=== PATIENT | female | born 1935 | race Caucasian/White ===

== ENCOUNTER 2020-02-08 10:10 | Inpatient (IN) ==
[2020-02-08] MEDS ORDERED: 0.9 % SODIUM CHLORIDE 1,000 ML IV ONE (10:21)
--- NOTE | 2020-02-08 10:30 | Emergency Department Note ---
Fall HPI - General Chief Complaint: Fall Stated Complaint: left hip pain Time Seen by Provider: 02/08/20 10:12 Source: patient Mode of arrival: EMS - History of Present Illness HPI Narrative: 84-year-old female patient presents emergency department via ambulance with chief complaint of left hip pain and immobility. Patient tells me she is walking at her home earlier this morning when she inadvertently reached down to pick something up off the floor and slipped backwards. During this time she landed on her hardwood floor causing exquisite pain in her left hip. She was unable to get up or ambulate afterward. EMS was contacted and she was transported to the hospital for evaluation. Upon arrival patient complains of exquisite pain throughout the entire left hip. She rates it 04/11. She denies any radiculopathy or numbness and tingling extending into her foot. She denies previous injury to her hip. She does mention slipped hitting her head but denies loss of consciousness. She denies proceeding dizziness, shortness of breath, or chest pain prior to falling. She denies any recent illness, fever, sweats, chills. She denies abdominal pain, nausea, vomiting, or diarrhea. Review of her active problems shows the following: Chronic back pain, multiple CVA, uterine cancer, breast cancer, polio, anxiety, vitamin D deficiency, diverticulosis, bipolar, COPD, hypertension, PTSD, Mnire's disease, chronic kidney disease stage II, type 2 diabetes, hypothyroidism. - Related Data Home Medications Medication Instructions Recorded Confirmed Meclizine [Antivert] 25 mg PO BID 03/15/16 12/13/19 Accu-Chek 1 each FS AC 03/17/16 12/13/19 albuterol sulfate 90 mcg/actuation 2 puff INHALATION QID PRN 05/24/19 12/13/19 aerosol inhaler benzonatate 100 mg capsule 200 mg PO TID PRN 05/24/19 12/13/19 mirtazapine 30 mg tablet 30 mg PO QHS tab 05/24/19 12/13/19 ondansetron HCl 4 mg tablet 4 mg PO Q6H PRN tab 05/24/19 12/13/19 prazosin 1 mg capsule 4 mg PO QDAY cap 05/24/19 12/13/19 tiotropium 2.5 mcg-olodaterol 2.5 2 puff INHALATION QDAY 05/24/19 12/13/19 mcg/actuation mist for inhalation tiotropium bromide 18 mcg capsule 1 cap INHALATION QDAY 05/24/19 12/13/19 with inhalation device insulin glargine 100 unit/mL (3 See Rx Instructions SUB-Q QAM ml 08/21/19 12/13/19 mL) subcutaneous pen Previous Rx's Medication Instructions Recorded Ipratropium/Albuterol [Duoneb] 3 ml NEB Q6HP PRN #30 ampul.neb 08/31/18 furosemide 20 mg tablet See Rx Instructions .ROUTE 07/24/19 .COMPLEX #20 tab cilostazol 100 mg tablet 100 mg PO QDAY #30 tab 08/22/19 pen needle, diabetic 31 gauge x See Rx Instructions .ROUTE 08/22/1912/16" .MEDSUPPLY #100 each blood-glucose meter See Rx Instructions .ROUTE 09/13/19 .MEDSUPPLY #1 each blood sugar diagnostic See Rx Instructions .ROUTE 09/17/19 .MEDSUPPLY #100 each baclofen 5 mg tablet 5 mg PO BID #15 tab 10/12/19 gabapentin 300 mg capsule 300 mg PO TID #150 cap 10/16/19 hydrocodone 7.5 mg-acetaminophen 1 tab PO Q12H #60 tab 10/23/19 325 mg tablet memantine 10 mg tablet 10 mg PO QAM #30 tab 11/13/19 liothyronine 5 mcg tablet See Rx Instructions .ROUTE 12/10/19 .COMPLEX #30 tablet trazodone 100 mg tablet See Rx Instructions .ROUTE 12/10/19 .COMPLEX #30 tablet clopidogrel 75 mg tablet 75 mg PO QDAY #30 tab 12/11/19 levothyroxine 50 mcg tablet 50 mcg PO QAM #30 tab 12/11/19 montelukast 10 mg tablet 10 mg PO QDAY #30 tab 12/11/19 pantoprazole 40 mg tablet,delayed 40 mg PO QDAY #90 tab 01/09/20 release atorvastatin 20 mg tablet 20 mg PO QDAY #30 tab 01/28/20 duloxetine 60 mg capsule,delayed 60 mg PO QDAY #30 cap 01/28/20 release metformin 500 mg tablet 500 mg PO BID #60 tab 01/28/20 donepezil 5 mg tablet 5 mg PO QDAY #90 tab 02/05/20 semaglutide See Rx Instructions .ROUTE 02/08/20 .COMPLEX #2 unknown measurement unit code: ml Allergies Allergy/AdvReac Type Severity Reaction Status Date / Time doxycycline Allergy Severe unknown Verified 12/13/19 10:10 povidone-iodine Allergy Severe unknown Verified 12/13/19 10:10 [From Betadine] soap [From Betadine] Allergy Severe unknown Verified 12/13/19 10:10 Tetanus Vaccines and Toxoid Allergy Severe unknown Verified 12/13/19 10:10 Penicillins AdvReac Severe Anaphylaxis Verified 12/13/19 10:10 cephalexin [From Keflex] AdvReac Intermediate Rash Verified 12/13/19 10:10 metoclopramide AdvReac Intermediate Confusion Verified 12/13/19 10:10 pseudoephedrine AdvReac Intermediate Confusion Verified 12/13/19 10:10 Sulfa (Sulfonamide AdvReac Intermediate Rash Verified 12/13/19 10:10 Antibiotics) Review of Systems All systems ED: reviewed and negative except as stated. Fall PMH - Past Medical History Medical history: Reports: arthritis, asthma, cancer, renal disease, TIA - Social History smoking status: Never smoker Physical Exam Limitations: no limitations General appearance: alert, anxious, grimacing, in distress, other (Well- developed, well-nourished, 84-year-old female patient laying supine on the emergency room gurney in obvious discomfort. She is grimacing with even slight touch as of her left lower extremity.) Head: atraumatic, normocephalic, normal inspection Head physical: Absent: raccoon eyes, Gu's sign Eye: Present: normal appearance, PERRL, EOMI, miosis (constriction). Absent: scleral icterus, conjunctival injection ENT: Present: normal oropharynx, mucous membranes moist Neck: Present: normal inspection, full ROM, trachea midline. Absent: tenderness, lymphadenopathy Chest: Present: symmetric chest wall rise Respiratory: Present: normal lung sounds bilaterally. Absent: respiratory distress, rales/crackles, wheezes, stridor, accessory muscle use, prolonged expiratory phase Cardiovascular: Present: regular rate, normal rhythm. Absent: systolic murmur, diastolic murmur Abdominal: Present: soft. Absent: distention, tenderness, guarding, rebound, rigidity, organomegaly, mass Extremities: Present: tenderness (Exquisite tenderness palpation throughout the entire left hip joint.), normal capillary refill, other (Pedal pulses present and bounding bilateral. Sensation grossly intact light touch throughout all areas of the lower extremities.). Absent: normal inspection (Left leg is shortened and angulated outward.), full ROM, pedal edema Neurological: Present: alert, oriented X3, motor sensory deficit. Absent: normal gait Psychiatric: Present: normal affect, anxious Skin: Present: warm, dry, normal color Course Course Narrative: Patient was brought into the emergency department and a history and physical exam was performed. Routine screening labs were ordered and reviewed. Radiographs of the left hip were ordered and reviewed. Patient was given Dilaudid 0.5 mg IVP to help with the pain. Review of her laboratory studies show the following: CBC within normal limits. Chemistry panel total CO2 21, glucose 218, all others normal limits. Chest x-ray read as negative study. X- ray of the left hip read by the radiologist as acute fracture left femoral neck. She required additional pain medications while in radiology was given a second Dilaudid 0.5 mg IVP. After reviewing all the data I reached out to the on-call orthopedic surgeon (Dr. Moss) and discussed the case with him. At this time Dr. Moss recommend the patient be admitted to the hospital under the medical service. He would then consult and and possibly repair of the fracture either today or tomorrow. With this in mind, I reached out to the hospitalist (Dr. Figueroa) I discussed the case with him. At this time Dr. Figueroa has consented to admit the patient here to the hospital. Next, I explained this to the patient to verbalized understanding. She is remained stable throughout her entire time in the emergency department. As mentioned she is going to be admitted under the medical service with orthopedic surgery in consultation. All further treatment decisions, modalities, and ultimate patient disposition will be carried out by Dr. Figueroa with Dr. Moss in consultation. Vital Signs Temperature 97.4 F 02/08/20 10:12 Pulse Rate 85 02/08/20 10:12 Respiratory Rate 22 02/08/20 10:12 Blood Pressure 178/71 02/08/20 10:12 Pulse Oximetry (%) 100 02/08/20 10:12 Temperature 97.4 F 02/08/20 10:12 Pulse Rate 97 H 02/08/20 11:21 Respiratory Rate 22 02/08/20 10:12 Blood Pressure 145/59 02/08/20 11:21 Pulse Oximetry (%) 97 02/08/20 11:21 Fall - Lab Data Lab results reviewed: Yes I reviewed the patient's lab results. Result diagrams: 02/08/20 10:39 Lab Results 02/08/20 02/08/20 Range/Units 10:39 10:39 WBC 6.4 (4.50-11.00) K/mcL RBC 4.59 (3.59-5.38) M/mcL Hgb 14.0 (11.2-15.7) g/dL Hct 41.2 (34.1-44.9) % POC Hct 40.0 (36.0-48.0) % MCV 89.8 (80.0-100.0) fL MCH 30.5 (26.0-34.0) pg MCHC 34.0 (31.0-36.0) g/dL RDW 12.4 (11.5-14.5) % Plt Count 167 (140-440) K/mcL MPV 11.2 H (7.4-10.4) fL Gran % 73.9 (38.0-78.0) % Lymph % (Auto) 18.4 (15.5-49.0) % [place] % (Auto) 5.3 (1.0-12.0) % Eos % (Auto) 1.6 (0.0-7.0) % Baso % (Auto) 0.8 (0.0-2.0) % Gran # 4.74 (1.80-8.00) K/mcL Lymph # (Auto) 1.18 L (1.50-4.80) K/mcL [place] # (Auto) 0.34 (0.10-0.90) K/mcL Eos # (Auto) 0.10 (0.00-0.70) K/mcL Baso # (Auto) 0.05 (0.00-0.30) K/mcL POC Sodium 140 (133-145) mmol/L POC Potassium 4.2 (3.3-5.1) mmol/L POC Chloride 106 (96-108) mmol/L POC Total CO2 21 L (22-30) mmol/L POC BUN 22 (8-23) mg/dl POC Creatinine 0.7 (0.6-1.1) mg/dl POC Glucose 218 H (70-105) mg/dL POC WB Ioniz Calcium 1.20 (1.16-1.32) mmol/L - Radiology Data Radiology results reviewed: Yes I reviewed the patient's radiology results. Ordering Physician: Niles Huffman PA-C Date of Service: 02/08/20 Procedure(s): XR hip LT comp 2VW Accession Number(s): [id number] HISTORY: Fell with left hip injury FINDINGS: There is an acute transverse fracture through the left femoral neck. There is varus angulation and mild impaction at the fracture site. The head remains normally aligned with the acetabulum and there is no arthritis in the hip joint. There are contour deformities in the right superior and inferior pubic rami and the left superior pubic ramus. Although these are not present on 07/06/18, they appear to be old healed fractures. Patient has had prior laminectomy and fusion at L5-S1. The bones are osteoporotic. Atherosclerotic plaques are present in the femoral arteries. IMPRESSION: Acute fracture in the left femoral neck Interpreted and Authenticated by: Jez Maldonado 02/08/20 Ordering Physician: Niles Huffman PA-C Date of Service: 02/08/20 Procedure(s): XR chest 1V Accession Number(s): [id number] HISTORY: Fell with chest injury FINDINGS: Left diaphragm is mild to moderately elevated. This has increased since prior study done on 05/15/19. The lungs are clear and well expanded. There is no pleural effusion or pneumothorax. The heart size, mediastinum and yenifer are normal. No fracture is identified. IMPRESSION: No acute abnormality Interpreted and Authenticated by: Jez Maldonado 02/08/20 Disposition Pt seen by HOSPITALIST MEDICAL DIRECTOR/PA only: Yes Clinical Impression: Fracture of femoral neck, left, closed Qualifiers: Encounter type: initial encounter Qualified Code(s): S72.002A - Fracture of unspecified part of neck of left femur, initial encounter for closed fracture Disposition: Xfer As Inpt ([facility]) Condition: Fair Referrals: Vania Chatterjee [Primary Care Provider] -
[2020-02-08] MEDS: HYDROmorphone 0.5 MG/0.5 ML SYRINGE IV PRN ×3 (10:32→13:57)
[2020-02-08] MEDS ORDERED: ONDANSETRON 4 MG/2 ML VIAL IV ONE ×2 (10:44→15:20)
[2020-02-08] MEDS ORDERED: ONDANSETRON 4 MG/2 ML VIAL ONE (10:47)
[2020-02-08 10:51] LABS: POC Blood Urea Nitrogen 22 mg/dl (8-23); POC CO2 21 mmol/L (22-30); POC Chloride 106 mmol/L (96-108); POC Creatinine 0.7 mg/dl (0.6-1.1); POC Glucose, Random 218 mg/dL (70-105); POC Potassium 4.2 mmol/L (3.3-5.1); POC Sodium 140 mmol/L (133-145)
--- NOTE | 2020-02-08 11:05 | XRay Report ---
HISTORY: Fell with left hip injury FINDINGS: There is an acute transverse fracture through the left femoral neck. There is varus angulation and mild impaction at the fracture site. The head remains normally aligned with the acetabulum and there is no arthritis in the hip joint. There are contour deformities in the right superior and inferior pubic rami and the left superior pubic ramus. Although these are not present on 07/06/18, they appear to be old healed fractures. Patient has had prior laminectomy and fusion at L5-S1. The bones are osteoporotic. Atherosclerotic plaques are present in the femoral arteries. IMPRESSION: Acute fracture in the left femoral neck Interpreted and Authenticated by: Jez Maldonado 02/08/20
--- NOTE | 2020-02-08 11:10 | XRay Report ---
HISTORY: Fell with chest injury FINDINGS: Left diaphragm is mild to moderately elevated. This has increased since prior study done on 05/15/19. The lungs are clear and well expanded. There is no pleural effusion or pneumothorax. The heart size, mediastinum and yenifer are normal. No fracture is identified. IMPRESSION: No acute abnormality Interpreted and Authenticated by: Jez Maldonado 02/08/20
[2020-02-08 11:26] LABS: Basophils # (Auto) 0.05 K/mcL (0.00-0.30); Basophils % (Auto) 0.8 % (0.0-2.0); Eosinophils % (Auto) 1.6 % (0.0-7.0); Granulocytes % (Auto) 73.9 % (38.0-78.0); Hematocrit 41.2 % (34.1-44.9); Lymphocytes # (Auto) 1.18 K/mcL (1.50-4.80); Lymphocytes % (Auto) 18.4 % (15.5-49.0); Mean Cell Volume 89.8 fL (80.0-100.0); Mean Platelet Volume 11.2 fL (7.4-10.4); Monocytes # (Auto) 0.34 K/mcL (0.10-0.90); Monocytes % (Auto) 5.3 % (1.0-12.0); Platelet Count 167 K/mcL (140-440); RBC 4.59 M/mcL (3.59-5.38); Red Cell Distribution Width 12.4 % (11.5-14.5); WBC 6.4 K/mcL (4.50-11.00)
[2020-02-08 12:47] LABS: POC Pro Time 12.2 sec (11.9-14.5)
[2020-02-08 13:14] LABS: Appearance,Urine CLEAR; Bacteria,Urine 0 /hpf (0); Bilirubin,Urine NEG (NEG); Color,Urine YELLOW; Culture Indicated,Urine NO; Glucose,Urine (UA) 150 mg/dL (NEG); Ketones,Urine 5/TR mg/dL (NEG); Leukocyte Esterase,Urine 250 /uL (NEG); Mucus,Urine FEW /hpf (0); Nitrate,Urine NEG (NEG); Protein,Urine NEG (NEG); Specific Gravity,Urine 1.023 (1.000-1.035); Urine Blood NEG mg/dL (<0.03); Urine Hyaline Cast 2 /lpf (0-2); Urine RBC 1 /hpf (0-1); Urine Squamous Epithelial Cell 1 /hpf (0-4); Urine Transitional Epi Cells < 1 /hpf (0-2); Urine WBC 7 /hpf (0-4); Urobilinogen,Urine NEG (NEG)
[2020-02-08] MEDS ORDERED: HYDROmorphone 0.5 MG/0.5 ML SYRINGE IV PRN ×2 (13:54→14:54)
[2020-02-08] MEDS ORDERED: SCOPOLAMINE 1 PATCH PATCH TOPICAL PRN ×2 (14:14→14:54)
[2020-02-08] MEDS ORDERED: IPRATROPIUM/ALBUTEROL 3 ML AMPUL.NEB NEB PRN ×3 (14:14→16:05)
[2020-02-08] MEDS ORDERED: DEXTROSE 50% 50 ML VIAL IV PRN ×2 (14:35→14:54)
[2020-02-08] MEDS ORDERED: DEXTROSE 31 GM ORAL.SUSP PO PRN ×2 (14:35→14:54)
[2020-02-08] MEDS ORDERED: PROCHLORPERAZINE 10 MG/2 ML VIAL IV PRN ×2 (14:35→14:54)
[2020-02-08] MEDS ORDERED: traMADol 50 MG TABLET PO PRN ×2 (14:43→14:54)
[2020-02-08] MEDS ORDERED: 0.9 % SODIUM CHLORIDE 1,000 ML IV SCH (14:45)
--- NOTE | 2020-02-08 14:59 | Internal Med History&Physical ---
Medical - H&P: [facility] Patient information: Note initiated : 02/08/20 at 2:49 pm Service Date, if different from initiated Date: [] Patient: Monika Mendez a 84 y/o F admitted on 02/08/20 for left hip pain. Chief Complaint: [fell and Left hip] History of present illness: Ms. Mendez is a 84 year old F with a past medical history of, COPD, high blood pressure, anemia, diabetes type 2, hypothyroidism, diabetes and depression who presents to the ER due to a fall and left hip pain. As per patient, she had a mechanical fall this morning at home. Immediately after the fall, she started to have left hip pain. Patient denies loss of consciousness and any injury to her head. In the ER, xray showed left hip fracture. Orth Dr. Moss was consulted, who suggested to admit pt and will do surgical intervention for her fracture. When I saw this patient, other than the symptoms mentioned above, she denied headache, dizziness, chest pain, shortness of breath, nausea, vomiting, abdominal pain, dysuria, change in vision, tingling or numbness of both legs. Review of systems: Positive for left hip pain. All other systems were reviewed and are negative. Medical - H&P: PMH Family history: reviewed and not pertinent (Both parents had diabetes) Have you smoked in the last 12 months: No Drug use: none Alcohol use: none Medical - H&P: Meds Home Medications Medication Instructions Recorded Confirmed Type Meclizine [Antivert] 25 mg PO BID 03/15/16 12/13/19 History Accu-Chek 1 each FS AC 03/17/16 12/13/19 History Ipratropium/Albuterol [Duoneb] 3 ml NEB Q6HP PRN #30 ampul.neb 08/31/18 12/13/19 Rx albuterol sulfate 90 mcg/actuation 2 puff INHALATION QID PRN 05/24/19 12/13/19 History aerosol inhaler benzonatate 100 mg capsule 200 mg PO TID PRN 05/24/19 12/13/19 History mirtazapine 30 mg tablet 30 mg PO QHS tab 05/24/19 12/13/19 History ondansetron HCl 4 mg tablet 4 mg PO Q6H PRN tab 05/24/19 12/13/19 History prazosin 1 mg capsule 4 mg PO QDAY cap 05/24/19 12/13/19 History tiotropium 2.5 mcg-olodaterol 2.5 2 puff INHALATION QDAY 05/24/19 12/13/19 History mcg/actuation mist for inhalation tiotropium bromide 18 mcg capsule 1 cap INHALATION QDAY 05/24/19 12/13/19 History with inhalation device furosemide 20 mg tablet See Rx Instructions .ROUTE 07/24/19 12/13/19 Rx .COMPLEX #20 tab insulin glargine 100 unit/mL (3 See Rx Instructions SUB-Q QAM ml 08/21/19 12/13/19 History mL) subcutaneous pen cilostazol 100 mg tablet 100 mg PO QDAY #30 tab 08/22/19 12/13/19 Rx pen needle, diabetic 31 gauge x See Rx Instructions .ROUTE 08/22/19 12/13/19 Rx 3" .MEDSUPPLY #100 each blood-glucose meter See Rx Instructions .ROUTE 09/13/19 12/13/19 Rx .MEDSUPPLY #1 each blood sugar diagnostic See Rx Instructions .ROUTE 09/17/19 12/13/19 Rx .MEDSUPPLY #100 each baclofen 5 mg tablet 5 mg PO BID #15 tab 10/12/19 12/13/19 Rx gabapentin 300 mg capsule 300 mg PO TID #150 cap 10/16/19 12/13/19 Rx hydrocodone 7.5 mg-acetaminophen 1 tab PO Q12H #60 tab 10/23/19 12/13/19 Rx 325 mg tablet memantine 10 mg tablet 10 mg PO QAM #30 tab 11/13/19 12/13/19 Rx liothyronine 5 mcg tablet See Rx Instructions .ROUTE 12/10/19 12/13/19 Rx .COMPLEX #30 tablet trazodone 100 mg tablet See Rx Instructions .ROUTE 12/10/19 12/13/19 Rx .COMPLEX #30 tablet clopidogrel 75 mg tablet 75 mg PO QDAY #30 tab 12/11/19 12/13/19 Rx levothyroxine 50 mcg tablet 50 mcg PO QAM #30 tab 12/11/19 12/13/19 Rx montelukast 10 mg tablet 10 mg PO QDAY #30 tab 12/11/19 12/13/19 Rx pantoprazole 40 mg tablet,delayed 40 mg PO QDAY #90 tab 01/09/20 Rx release atorvastatin 20 mg tablet 20 mg PO QDAY #30 tab 01/28/20 Rx duloxetine 60 mg capsule,delayed 60 mg PO QDAY #30 cap 01/28/20 Rx release metformin 500 mg tablet 500 mg PO BID #60 tab 01/28/20 Rx donepezil 5 mg tablet 5 mg PO QDAY #90 tab 02/05/20 Rx semaglutide See Rx Instructions .ROUTE 02/08/20 Rx .COMPLEX #2 unknown measurement unit code: ml Allergies Allergy/AdvReac Type Severity Reaction Status Date / Time doxycycline Allergy Severe unknown Verified 12/13/19 10:10 povidone-iodine Allergy Severe unknown Verified 12/13/19 10:10 [From Betadine] soap [From Betadine] Allergy Severe unknown Verified 12/13/19 10:10 Tetanus Vaccines and Toxoid Allergy Severe unknown Verified 12/13/19 10:10 Penicillins AdvReac Severe Anaphylaxis Verified 12/13/19 10:10 cephalexin [From Keflex] AdvReac Intermediate Rash Verified 12/13/19 10:10 metoclopramide AdvReac Intermediate Confusion Verified 12/13/19 10:10 pseudoephedrine AdvReac Intermediate Confusion Verified 12/13/19 10:10 Sulfa (Sulfonamide AdvReac Intermediate Rash Verified 12/13/19 10:10 Antibiotics) Medical - H&P: Exam - Constitutional Vitals: Temp Pulse Resp BP Pulse Ox 97.5 F 109 H 22 138/70 98 02/08/20 14:00 02/08/20 14:00 02/08/20 14:00 02/08/20 14:00 02/08/20 14:00 - Other Additional findings: General - No acute distress Eyes - PERRLA, EOM intact ENT no rhinorrhea, no noticeable or palpable swelling, no redness or rash around throat or on face Neck supple, no JVD, no thyromegaly Respiratory: Lungs -clear, no wheezing or crackles. Cardiovascular - RRR no m/r/g, GI - Normal bowel sounds, no distended, soft. Extremeties - left hip tenderness, No edema, cyanosis or clubbing Hemo/lymphatic/immune no lymphadenopathy Neurological Alert and oriented x 3, expressive aphasia, no focal neurological deficits. Psychiatry flat affect Medical - H&P: Reslt - Labs CBC & Chem 7: 02/08/20 10:39 Labs: Short CBC 02/08/20 Range/Units 10:39 WBC 6.4 (4.50-11.00) K/mcL Hgb 14.0 (11.2-15.7) g/dL Hct 41.2 (34.1-44.9) % Plt Count 167 (140-440) K/mcL Urine 02/08/20 Range/Units 12:16 Urine Color Yellow Urine Appearance Clear Urine pH 5.0 (5.0-9.0) Ur Specific [place] 1.023 (1.000-1.035) Urine Protein Neg (NEG) mg/dL Urine Glucose (UA) 150 A (NEG) mg/dL Medical - H&P: A/P - Narrative A/P Narrative: Assessment: 1. Acute fracture in the left femoral neck 2. S/p stroke 3. COPD 4. HTN 5. Anemia of chronic disease 6. DM type 2 7. Hx of orthostatic hypotension 8. Hypothyroidism 9. Anxiety and depression 10. Meachanical fall at home, Plan: 1. Xray showed Acute fracture in the left femoral neck Dr. Moss was consulted in the ER who would perform a procedure for her. Revised Cardiac Risk Index for Pre-Operative Risk - 2 points (at least). 10.1% 30-day risk of , [place], or cardiac arrest. NPO IVF pain management 2. 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 Home medications include plavix and lipitor. Plavix is on hold due to procedure. Continue lipitor. 3. COPD stable. Continue montelukast and inhalers 4. Home medications do not include blood pressure medication. Blood pressure is controlled Monitor blood pressure 5. Metformin is on hold Lantus is on hold due to NPO Insulin sliding scales 6. Continue home medications for anxiety and depression 7. PT/OT 8. DVT prophylaxis: No pharmacological DVT prophylaxis at this moment due to procedure 9. Code status: DNR/DNI Medical - H&P: Qual - Stroke Symptom Onset Unknown: No - VTE Deep Vein Thrombosis/Pulmonary Embolism Present on Admission: No
[2020-02-08] MEDS ORDERED: VANCOMYCIN 1,000 MG in 0.9 % SODIUM CHLORIDE 250 ML IV SCH (15:00)
[2020-02-08] MEDS ORDERED: VANCOMYCIN PER PHARMACY IV ONE (15:02)
--- NOTE | 2020-02-08 15:17 | Event Note ---
Advanced Care Planning Documents: Parties in Attendance: Patient Decisional Capacity: Yes POLST form completed: not I explained the process regarding CPR, defibrillation, shock, and intubation to the patient. Pt declined cpr and intubation.
[2020-02-08] MEDS ORDERED: LIDOCAINE HCL/PF 100 MG/5 ML SYRINGE IV ONE (15:20)
[2020-02-08] MEDS ORDERED: DEXAMETHASONE 10 MG/ML VIAL IV ONE (15:20)
[2020-02-08] MEDS ORDERED: TRANEXAMIC ACID 1,000 MG/10 ML VIAL IV ONE (15:20)
[2020-02-08] MEDS ORDERED: fentaNYL 100 MCG/2 ML VIAL IV ONE (15:20)
[2020-02-08] MEDS ORDERED: KETAMINE 100 MG/ML ML IV ONE (15:20)
[2020-02-08] MEDS ORDERED: PROPOFOL 200 MG/20 ML VIAL IV ONE (15:20)
[2020-02-08 15:22] LABS: Phosphorous 2.8 mg/dL (2.7-4.5)
[2020-02-08 15:24] LABS: proBNP 84.1 pg/ml (0-450)
[2020-02-08] MEDS ORDERED: diphenhydrAMINE 50 MG/ML VIAL IV PRN (16:05)
[2020-02-08] MEDS ORDERED: METHOCARBAMOL 1,000 MG/10 ML VIAL IV PRN (16:05)
[2020-02-08] MEDS ORDERED: NALOXONE HCL 0.4 MG/ML VIAL IV PRN (16:05)
[2020-02-08] MEDS ORDERED: PROMETHAZINE 25 MG/ML VIAL IV PRN (16:05)
[2020-02-08] MEDS ORDERED: ONDANSETRON 4 MG/2 ML VIAL IV PRN (16:05)
[2020-02-08] MEDS ORDERED: ACETAMINOPHEN 1,000 MG/100 ML BOTTLE IV ONE (16:05)
[2020-02-08] MEDS ORDERED: BENZOCAINE/MENTHOL 1 LOZENGE PO PRN ×2 (16:05→16:49)
[2020-02-08] MEDS ORDERED: LACTATED RINGERS 250 ML IV PRN (16:05)
[2020-02-08] MEDS ORDERED: LACTATED RINGERS 1,000 ML IV SCH (16:15)
[2020-02-08] MEDS ORDERED: POLYETHYLENE GLYCOL 3350 17 GM PACKET PO PRN (16:49)
[2020-02-08] MEDS ORDERED: BISACODYL 10 MG SUPP.RECT PR PRN (16:49)
[2020-02-08] MEDS ORDERED: MAGNESIUM HYDROXIDE 30 ML ORAL.SUSP PO PRN (16:49)
[2020-02-08] MEDS ORDERED: FLEETS ADULT ENEMA PR PRN (16:49)
[2020-02-08] MEDS ORDERED: ceFAZolin 2 GM in DEXTROSE 5% IN WATER 50 ML IV SCH (17:00)
[2020-02-08] MEDS ORDERED: INSULIN LISPRO 1 UNIT/0.01 ML UNIT SQ SCH (17:00)
[2020-02-08] MEDS: MEPERIDINE 25 MG/ML SYRINGE IV PRN ×2 (17:17→17:28)
[2020-02-08] MEDS: fentaNYL 100 MCG/2 ML VIAL IV PRN ×4 (17:29→17:47)
[2020-02-08] MEDS: INSULIN LISPRO 1 UNIT/0.01 ML UNIT SQ SCH ×2 (18:10→22:11)
[2020-02-08] MEDS: 0.9 % SODIUM CHLORIDE 1,000 ML IV SCH (18:10)
--- NOTE | 2020-02-08 20:00 | Brief Operative Note ---
Date of procedure: 02/08/20 Pre-op diagnosis: Left femoral neck fracture Post-op diagnosis: same (plust greater trochanter fracture) Procedure: Open treatment of Left femoral neck fracture with prosthetic hemiarthroplasty Grafts/Implants: Yes (Depuy 7 cemented summit stem, +10 neck, 46 unipolar head) Anesthesia: GETA Findings: severe osteoporosis Complications: none Surgeon: Milton Moss Surgical Aide: Deniz David Estimated blood loss (cc): 200 Specimens Removed/Pathology: none sent Condition: stable Disposition: PACU
--- NOTE | 2020-02-08 20:19 | Consultation ---
DATE OF CONSULTATION: 02/08/2020 CHIEF COMPLAINT: Left hip pain status post fall. HISTORY: This is an 84-year-old female who lives independently who stated she was reaching down to pick something off the floor and slipped backwards landing on her left hip. She had exquisite pain and inability to bear weight. EMS was called and she was taken to the ER. X-rays taken showed a femoral neck fracture. She denies any injury to anywhere else and denies loss of consciousness. Pain is made worse with movement, 7/10 in severity, better with immobility. PAST MEDICAL HISTORY: Quite extensive, including diabetes type 2, chronic renal insufficiency, history of multiple strokes, breast cancer, bipolar with anxiety, COPD, hypertension, PTSD, diverticulosis, chronic back pain, hypothyroidism, Meniere's disease. PAST SURGICAL HISTORY: Also extensive, apparently has had right ankle fracture surgery as well as spine fracture surgery. MEDICATIONS: List is extensive, includes, 1. Meclizine. 2. Albuterol inhaler. 3. Benzonatate. 4. Mirtazapine. 5. Ondansetron. 6. Prazosin. 7. Tiotropium inhaler. 8. Insulin. 9. Baclofen. 10. Gabapentin. 11. Hydrocodone. 12. Memantine. 13. Liothyronine. 14. Trazodone. 15. Clopidogrel. 16. Levothyroxine. 17. Montelukast. 18. Pantoprazole. 19. Atorvastatin. 20. Duloxetine. 21. Metformin. 22. Donepezil. 23. Semaglutide. ALLERGIES: DOXYCYCLINE, BETADINE, TETANUS, PENICILLIN, CEPHALEXIN, METOCLOPRAMIDE, PSEUDOEPHEDRINE AND SULFA. SOCIAL HISTORY: No tobacco or alcohol use. She lives independently. FAMILY HISTORY: Positive for arthritis, asthma, cancer, renal disease and TIA. REVIEW OF SYSTEMS: Negative except per the history of present illness. PHYSICAL EXAMINATION: VITAL SIGNS: Temperature is 97.4, pulse 85, respirations 22, blood pressure 178/71, pulse ox 100%. GENERAL: She appears her stated age in no acute distress. She is oriented to person, place. Mood and affect are appropriate. EXTREMITIES: Bilateral upper extremity and right lower extremity is normal to inspection, range of motion, stability and strength. The left lower extremity on inspection shows shortening with external rotation. She has severely limited range of motion secondary to pain. There is no gross instability of the fracture site. Her strength is 3/5 with foot flexion and extension. Sensation to light touch is grossly intact distally. Pedal pulses 2+ in the dorsalis pedis. Skin is intact. HEART: Regular. LUNGS: Clear. IMAGING: Her x-rays reviewed shows a displaced femoral neck fracture. IMPRESSION: Left closed displaced femoral neck fracture in an 84-year-old female who has multiple other medical comorbidities. PLAN: I recommend we proceed with open treatment of the left femoral neck fracture with prosthetic hemiarthroplasty as soon as cleared by hospitalist. I discussed risks of surgery with her, which include but not limited to, bleeding, possibly requiring transfusion -- this being increased risk with her Plavix, injury to nerves, blood vessels, other surrounding structures; anesthetic risks, leg length discrepancy; dislocation; fracture; DVT and pulmonary embolus risks; and the possibility of needing further surgeries. She understands and wished to proceed. BJB:[id number] Job ID: [id number] Doc ID: [id number] Milton Moss MD
[2020-02-08] MEDS ORDERED: WARFARIN 3 MG TABLET PO ONE (21:00)
[2020-02-08] MEDS ORDERED: SENNOSIDES 1 TABLET PO SCH ×2 (21:00)
[2020-02-08] MEDS ORDERED: DOCUSATE SODIUM 100 MG CAPSULE PO SCH ×2 (21:00)
[2020-02-08] MEDS: SENNOSIDES 1 TABLET PO SCH (21:56)
[2020-02-08] MEDS: DOCUSATE SODIUM 100 MG CAPSULE PO SCH (21:56)
[2020-02-08] MEDS ORDERED: 0.9 % SODIUM CHLORIDE 10 ML SYRINGE IV SCH (22:00)
[2020-02-08] MEDS ORDERED: PRAZOSIN 2 MG CAPSULE PO PRN (22:27)
[2020-02-08] MEDS: 0.9 % SODIUM CHLORIDE 10 ML SYRINGE IV SCH (22:35)
[2020-02-09] MEDS: oxyCODONE/APAP 5/325MG TABLET PO PRN ×4 (03:08→19:04)
[2020-02-09] MEDS: 0.9 % SODIUM CHLORIDE 1,000 ML IV SCH ×3 (04:11→22:02)
[2020-02-09] MEDS: 0.9 % SODIUM CHLORIDE 10 ML SYRINGE IV SCH ×3 (04:11→20:50)
[2020-02-09 06:38] LABS: Basophils # (Auto) 0.03 K/mcL (0.00-0.30); Basophils % (Auto) 0.2 % (0.0-2.0); Eosinophils # (Auto) 0.01 K/mcL (0.00-0.70); Eosinophils % (Auto) 0.1 % (0.0-7.0); Granulocytes % (Auto) 87.2 % (38.0-78.0); Hemoglobin 10.9 g/dL (11.2-15.7); Lymphocytes # (Auto) 0.82 K/mcL (1.50-4.80); Lymphocytes % (Auto) 6.6 % (15.5-49.0); Mean Cell Volume 92.2 fL (80.0-100.0); Mean Platelet Volume 10.9 fL (7.4-10.4); Monocytes # (Auto) 0.73 K/mcL (0.10-0.90); Monocytes % (Auto) 5.9 % (1.0-12.0); Platelet Count 158 K/mcL (140-440); RBC 3.58 M/mcL (3.59-5.38); Red Cell Distribution Width 12.1 % (11.5-14.5); WBC 12.4 K/mcL (4.50-11.00)
[2020-02-09 06:55] LABS: ALT/SGPT 7 U/l (0-40); AST/SGOT 18 U/l (0-37); Albumin 3.1 gm/dL (3.2-5.2); Albumin/Globulin Ratio 1.3 (1.0-2.3); Alkaline Phosphatase 69 U/L (39-117); Bilirubin,Total 0.4 mg/dL (0.0-1.0); Blood Urea Nitrogen 15 mg/dl (8-23); Carbon Dioxide 19 mmol/L (22-30); Chloride 103 mmol/L (96-108); Globulin 2.4 gm/dL (2.2-3.7); Glomerular Filtration Rate 80; Glucose 246 mg/dL (70-105)
[2020-02-09 07:05] LABS: Prothrombin Time 13.9 sec (11.9-14.5)
[2020-02-09] MEDS: PANTOPRAZOLE 40 MG TABLET PO SCH (07:08)
[2020-02-09] MEDS ORDERED: PANTOPRAZOLE 40 MG TABLET PO SCH (07:30)
[2020-02-09] MEDS: INSULIN LISPRO 1 UNIT/0.01 ML UNIT SQ SCH ×4 (08:58→21:01)
[2020-02-09] MEDS: DONEPEZIL 10 MG TABLET PO SCH (08:59)
[2020-02-09] MEDS: ATORVASTATIN 20 MG TABLET PO SCH (08:59)
[2020-02-09] MEDS: LEVOTHYROXINE 50 MCG TABLET PO SCH (08:59)
[2020-02-09] MEDS: DOCUSATE SODIUM 100 MG CAPSULE PO SCH ×2 (08:59→20:50)
[2020-02-09] MEDS: GABAPENTIN 300 MG CAPSULE PO SCH ×3 (08:59→20:49)
[2020-02-09] MEDS: INSULIN GLARGINE, HUMAN 1 UNIT/0.01 ML SQ SCH (08:59)
[2020-02-09] MEDS: DULoxetine 30 MG CAPSULE PO SCH (08:59)
[2020-02-09] MEDS ORDERED: CILOSTAZOL 100 MG TABLET PO SCH (09:00)
[2020-02-09] MEDS ORDERED: VANCOMYCIN 1,000 MG in 0.9 % SODIUM CHLORIDE 250 ML IV ONE (09:00)
[2020-02-09] MEDS ORDERED: CLOPIDOGREL 75 MG TABLET PO SCH (09:00)
--- NOTE | 2020-02-09 09:18 | XRay Report ---
HISTORY: Postop repair of left hip fracture FINDINGS: There is a well positioned unipolar left hip prosthesis. The femoral head and neck of been resected. No new fracture has developed. IMPRESSION: Well-positioned left hip prosthesis Interpreted and Authenticated by: Jez Maldonado 02/09/20
--- NOTE | 2020-02-09 10:00 | Internal Med Progress Note ---
Medical - PN: Subj Patient information: Note initiated : 02/09/20 at 9:54 am Service Date, if different from initiated Date: [] Patient: Monika Mendez a 84 y/o F admitted on 02/08/20 for left hip pain. Chief Complaint: [] Interval history: Ms. Mendez is a 84 year old F with a past medical history of, COPD, high blood pressure, anemia, diabetes type 2, hypothyroidism, diabetes and depression who presents to the ER due to a fall and left hip pain. As per patient, she had a mechanical fall this morning at home. Immediately after the fall, she started to have left hip pain. Patient denies loss of consciousness and any injury to her head. In the ER, xray showed left hip fracture. Orth Dr. Moss was consulted, who suggested to admit pt and will do surgical intervention for her fracture. When I saw this patient, other than the symptoms mentioned above, she denied headache, dizziness, chest pain, shortness of breath, nausea, vomiting, abdominal pain, dysuria, change in vision, tingling or numbness of both legs. 02/08 Pt underwent open treatment of Left femoral neck fracture with prosthetic hemiarthroplasty by Dr. Moss on 02/08/20 Feels fine today. But she reports that she has pain from the surgical site. Otherwise she is fine. Vital signs are stable WBC 12.4, hemoglobin 10.9 Hemoglobin A1c 7.0 MAC 1.2, repleted, repeat in morning Review of systems: Positive for left hip pain. All other systems were reviewed and are negative. - Constitutional Vitals: Vital Signs Temp Pulse Resp BP Pulse Ox 97.3 F 88 14 112/59 98 02/09/20 07:12 02/09/20 07:12 02/09/20 07:12 02/09/20 07:12 02/09/20 07:12 Period Temp Pulse Resp BP Sys/Ley Pulse Ox Last 24 Hr 97.3 F-99.1 F 79-113 10-22 96-178/46-131 92-100 Intake and Output 02/08/20 02/09/20 02/09/20 21:59 05:59 13:59 Intake Total 2100 510 991 Output Total 550 1075 Balance 1550 -565 991 Weight 68.719 kg Intake & Output: Intake & Output 02/08/20 02/09/20 02/09/20 21:59 05:59 13:59 Intake Total 2100 510 991 Output Total 550 1075 Balance 1550 -565 991 Weight 68.719 kg Intake: IV 100 991 Sodium Chloride 0.9% 1,000 ml @ 991 75 mls/hr IV .[id number] [facility] Rx#: [id number] Oral 510 IV - Manual Only 1999 Output: Urine Catheter Amount 300 1075 Estimated Blood Loss 250 Other: Urine Appearance Clear Clear Uretheral (Bur[place]) Clear Urine Color Bright Yellow Bright Yellow Uretheral ([place]) Bright Yellow Urine Odor Normal Normal - Additional findings Additional findings: General - No acute distress Eyes - PERRLA, EOM intact ENT no rhinorrhea, no noticeable or palpable swelling, no redness or rash around throat or on face Neck supple, no JVD, no thyromegaly Respiratory: Lungs -clear, no wheezing or crackles. Cardiovascular - RRR no m/r/g, GI - Normal bowel sounds, no distended, soft. Extremeties - left hip tenderness, No edema, cyanosis or clubbing. Dressing dry Hemo/lymphatic/immune no lymphadenopathy Neurological Alert and oriented x 3, expressive aphasia, no focal neurological deficits. Psychiatry flat affect Medical - PN: Obj Da - Labs CBC & Chem 7: 02/09/20 05:17 02/09/20 05:17 Labs: Abnormal Lab Results 02/09/20 02/09/20 02/09/20 08:20 05:17 05:17 WBC 12.4 H RBC 3.58 L Hgb 10.9 L Hct 33.0 L MPV 10.9 H Gran % 87.2 H Lymph % (Auto) 6.6 L Gran # 10.82 H Lymph # (Auto) 0.82 L Carbon Dioxide 19 L POC Total CO2 Glucose 246 H POC Glucose Hemoglobin A1c 7.0 H Calcium 8.0 L Magnesium Total Protein 5.5 L Albumin 3.1 L Urine Glucose (UA) Urine Ketones Ur Leukocyte Esterase Urine WBC 02/08/20 02/08/20 02/08/20 12:16 10:39 10:39 WBC RBC Hgb Hct MPV Gran % Lymph % (Auto) Gran # Lymph # (Auto) Carbon Dioxide POC Total CO2 21 L Glucose POC Glucose 218 H Hemoglobin A1c Calcium Magnesium 1.2 L Total Protein Albumin Urine Glucose (UA) 150 A Urine Ketones 5/tr A Ur Leukocyte Esterase 250 A Urine WBC 7 H 02/08/20 10:39 WBC RBC Hgb Hct MPV 11.2 H Gran % Lymph % (Auto) Gran # Lymph # (Auto) 1.18 L Carbon Dioxide POC Total CO2 Glucose POC Glucose Hemoglobin A1c Calcium Magnesium Total Protein Albumin Urine Glucose (UA) Urine Ketones Ur Leukocyte Esterase Urine WBC Meds: Medications Atorvastatin Calcium (Lipitor) 20 mg PO QDAY [facility] Last Admin: 02/09/20 08:59 Dose: 20 mg Documented by: Bisacodyl (Dulcolax) 10 mg [place] Q2-3DAYS PRN PRN Reason: Constipation Cilostazol (Pletal) 100 mg PO QDAY [facility] Clopidogrel Bisulfate (Plavix) 75 mg PO DAILY [facility] Dextrose (Dextrose 50%) 0 ml IV UD PRN PRN Reason: Hypoglycemia Diagnostic Test (Pha) (Accu-Chek) 1 each FS [facility] Last Admin: 02/09/20 07:15 Dose: 1 each Documented by: Docusate Sodium (Colace) 100 mg PO BID [facility] Last Admin: 02/09/20 08:59 Dose: 100 mg Documented by: Donepezil HCl (Aricept) 5 mg PO QDAY [facility] Last Admin: 02/09/20 08:59 Dose: 5 mg Documented by: Duloxetine HCl (Cymbalta) 60 mg PO QDAY [facility] Last Admin: 02/09/20 08:59 Dose: 60 mg Documented by: Gabapentin (Neurontin) 300 mg PO TID [facility] Last Admin: 02/09/20 08:59 Dose: 300 mg Documented by: Glucose (Insta-Glucose) 15 gm PO PRN PRN PRN Reason: Hypoglycemia Sodium Chloride (Sodium Chloride 0.9%) 1,000 mls @ 75 mls/hr IV .[id number] [facility] Last Admin: 02/09/20 07:23 Dose: 75 mls/hr Documented by: Vancomycin HCl 1,000 mg/ (Sodium Chloride) 250 mls @ 250 mls/hr IV ONCE ONE Stop: 02/09/20 09:59 Insulin Glargine (Lantus) 5 unit SQ DAILY [facility] Last Admin: 02/09/20 08:59 Dose: 5 units Documented by: Insulin Human Lispro (Humalog) [address] [facility]; Protocol Last Admin: 02/09/20 08:58 Dose: 3 unit Documented by: [facility]othyroxine [facility] ([facility]throid) [facility] Last Admin: 02/09/20 08:59 Dose: 50 mcg Documented by: Magnesium Hydroxide (Milk Of Magnesia) 30 ml PO BIDP PRN PRN Reason: Constipation Memantine (Namenda) [facility] Montelukast Sodium (Singular) 10 mg PO QDAY [facility] Morphine Sulfate (Morphine) 0 mg IV Q1HP PRN; Protocol PRN Reason: Per Pain Protocol Last Admin: 02/08/20 21:55 Dose: 4 mg Documented by: Oxycodone/Acetaminophen (Percocet 5-325 Mg) 0 tab PO Q4HP PRN; Protocol PRN Reason: Per Pain Protocol Last Admin: 02/09/20 07:22 Dose: 2 tab Documented by: Pantoprazole Sodium (Protonix) 40 mg PO [facility] Last Admin: 02/09/20 07:08 Dose: 40 mg Documented by: Polyethylene Glycol (Miralax) 17 gm PO DAILYP PRN PRN Reason: Constipation Prazosin HCl (Minipress) 4 mg PO HSP PRN PRN Reason: Nightmares Prochlorperazine (Compazine) 5 mg IV Q6HP PRN PRN Reason: Nausea And Vomiting Last Admin: 02/08/20 18:38 Dose: 5 mg Documented by: Rivka (Senokot) 2 tab PO HS [facility] Last Admin: 02/08/20 21:56 Dose: 2 tab Documented by: Sodium Biphosphate/Sodium Phosphate (Fleets Adult) 1 dose [place] Q3-4DAYS PRN PRN Reason: Constipation Sodium Chloride (Saline Flush) 10 ml IV Q8 [facility] Last Admin: 02/09/20 04:11 Dose: Not Given Documented by: Throat Lozenges (Cepacol) 1 lozenge PO PRN PRN PRN Reason: Sore Throat Warfarin Sodium (Coumadin Per Pharmacy) 1 order PO UD [facility] Stop: 02/10/20 00:00 Medical - PN: A/P - Time Spent With Patient Total time spent is greater than 50% in coordination of care (as documented) at patient's floor/unit and/or counseling patient: - Narrative A/P Narrative: Assessment: 1. Acute fracture in the left femoral neck 2. S/p stroke 3. COPD 4. HTN 5. Anemia of chronic disease 6. DM type 2 7. Hx of orthostatic hypotension 8. Hypothyroidism 9. Anxiety and depression 10. Meachanical fall at home, 11. Hypomagnesemia Plan: 1. S/p open treatment of Left femoral neck fracture with prosthetic hemiarthroplasty by Dr. Moss on 02/08/20 Postop management including pain control and DVT prophylaxis by Ortho team IVF resumed diet 2. 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 Home medications include plavix and lipitor. resumed Plavix. Continue lipitor. 3. COPD stable. Continue montelukast and inhalers 4. Home medications do not include blood pressure medication. Blood pressure is controlled Monitor blood pressure 5. hemoglobin 10.9 Diabetic diet. Metformin is on hold Lantus 5units was ordered. Insulin sliding scales 6. Continue home medications for anxiety and depression 7. PT/OT 8. Mag 1.2. MgSO4 4g iv x 1. repeat mag in am 9. DVT prophylaxis: warfarin 10. Code status: DNR/DNI Medical - PN: Qual - Stroke Symptom Onset Unknown: No - VTE Deep Vein Thrombosis/Pulmonary Embolism Present on Admission: No
--- NOTE | 2020-02-09 10:32 | Orthopedic Progress Note ---
Orthopedics - Auxillary Note - Subjective Patient Information: Note initiated : 02/09/20 at 10:31 am Service Date, if different from initiated Date: [] Patient: Monika Mendez 84 y/o F admitted on 02/08/20 for left hip pain. Chief Complaint: Moderate L hip pain bandages c/d/i NVI-distal Vital Signs Temp Pulse Pulse Resp BP BP BP 02/09/20 07:12 97.3 F 88 14 112/59 02/09/20 03:05 98.3 F 98 H 12 117/65 02/08/20 23:00 98.7 F 100 H 16 108/64 02/08/20 22:39 98 H 140/79 02/08/20 19:58 99 H 14 138/76 02/08/20 19:28 101 H 161/77 02/08/20 18:59 87 156/73 02/08/20 18:43 91 H 146/87 02/08/20 18:28 91 H 137/79 02/08/20 18:13 89 135/72 02/08/20 17:58 90 156/74 02/08/20 17:50 98 F 92 H 16 131/64 02/08/20 17:40 96 H 16 138/108 02/08/20 17:25 113 H 16 157/46 02/08/20 17:10 108 H 13 160/129 02/08/20 17:05 111 H 14 125/109 02/08/20 17:00 97 H 10 L 145/62 02/08/20 16:55 99.1 F H 103 H 10 L 137/61 02/08/20 14:00 97.5 F 109 H 22 138/70 02/08/20 13:52 97.4 F 91 H 22 133/52 02/08/20 13:36 97.5 F 109 H 20 138/70 02/08/20 13:16 91 H 133/52 02/08/20 13:15 89 02/08/20 13:01 90 141/56 02/08/20 12:46 86 136/55 02/08/20 12:31 85 132/75 02/08/20 12:16 95 H 96/46 02/08/20 12:07 94 H 131/82 02/08/20 12:01 97 H 131/82 02/08/20 11:46 93 H 133/53 02/08/20 11:31 142/101 02/08/20 11:21 97 H 145/59 02/08/20 11:16 93 H 145/59 02/08/20 11:07 87 159/131 02/08/20 10:46 88 175/72 Pulse Ox 02/09/20 07:12 98 02/09/20 03:05 97 02/08/20 23:00 97 02/08/20 22:39 94 02/08/20 19:58 94 02/08/20 19:28 94 02/08/20 18:59 98 02/08/20 18:43 99 02/08/20 18:28 97 02/08/20 18:13 99 02/08/20 17:58 02/08/20 17:50 100 02/08/20 17:40 100 02/08/20 17:25 98 02/08/20 17:10 99 02/08/20 17:05 99 02/08/20 17:00 100 02/08/20 16:55 100 02/08/20 14:00 98 02/08/20 13:52 96 02/08/20 13:36 98 02/08/20 13:16 96 02/08/20 13:15 96 02/08/20 13:01 97 02/08/20 12:46 100 02/08/20 12:31 100 02/08/20 12:16 100 02/08/20 12:07 100 02/08/20 12:01 99 02/08/20 11:46 92 02/08/20 11:31 02/08/20 11:21 97 02/08/20 11:16 96 02/08/20 11:07 100 02/08/20 10:46 100 Intake and Output 02/08/20 02/09/20 02/09/20 21:59 05:59 13:59 Intake Total 2100 510 991 Output Total 550 1075 Balance 1550 -565 991 Intake: IV 100 991 Sodium Chloride 0.9% 1,000 ml @ 991 75 mls/hr IV .[id number] [facility] Rx#: [id number] Oral 510 IV - Manual Only 2000 Output: Urine Catheter Amount 300 1075 Estimated Blood Loss 250 Other: Urine Appearance Clear Clear Uretheral ([place]) Clear Urine Color Bright Yellow Bright Yellow Uretheral ([place]) Bright Yellow Urine Odor Normal Normal Weight 151 lb 8 oz Laboratory Results - last 24 hr 02/08/20 02/08/20 02/08/20 10:39 10:39 10:39 WBC 6.4 RBC 4.59 Hgb 14.0 Hct 41.2 POC Hct 40.0 MCV 89.8 MCH 30.5 MCHC 34.0 RDW 12.4 Plt Count 167 MPV 11.2 H Gran % 73.9 Lymph % (Auto) 18.4 [place] % (Auto) 5.3 Eos % (Auto) 1.6 Baso % (Auto) 0.8 Gran # 4.74 Lymph # (Auto) 1.18 L [place] # (Auto) 0.34 Eos # (Auto) 0.10 Baso # (Auto) 0.05 POC PT PT POC INR INR POC Sodium 140 Sodium POC Potassium 4.2 Potassium POC Chloride 106 Chloride Carbon Dioxide POC Total CO2 21 L Anion Gap POC BUN 22 BUN Creatinine POC Creatinine 0.7 GFR Calculation Glucose POC Glucose 218 H Hemoglobin A1c Estim Average Glucose Calcium POC WB Ioniz Calcium 1.20 Phosphorus 2.8 Magnesium 1.2 L Total Bilirubin AST ALT Alkaline Phosphatase Troponin T NT-Pro-B Natriuret Pep 84.1 Total Protein Albumin Globulin Albumin/Globulin Ratio Urine Color Urine Appearance Urine pH Ur Specific [place] Urine Protein Urine Glucose (UA) Urine Ketones Urine Occult Blood Urine Nitrate Urine Bilirubin Urine Urobilinogen Ur Leukocyte Esterase Urine RBC Urine WBC Ur Squamous Epith Cells Ur Transition Epith Cell Urine Bacteria Hyaline Casts Urine Mucus Ur Culture Indicated? 02/08/20 02/08/20 02/08/20 10:39 12:16 12:26 WBC RBC Hgb Hct POC Hct MCV MCH MCHC RDW Plt Count MPV Gran % Lymph % (Auto) [place] % (Auto) Eos % (Auto) Baso % (Auto) Gran # Lymph # (Auto) [place] # (Auto) Eos # (Auto) Baso # (Auto) POC PT 12.2 PT POC INR 1.0 INR POC Sodium Sodium POC Potassium Potassium POC Chloride Chloride Carbon Dioxide POC Total CO2 Anion Gap POC BUN BUN Creatinine POC Creatinine GFR Calculation Glucose POC Glucose Hemoglobin A1c Estim Average Glucose Calcium POC WB Ioniz Calcium Phosphorus Magnesium Total Bilirubin AST ALT Alkaline Phosphatase Troponin T < 0.01 NT-Pro-B Natriuret Pep Total Protein Albumin Globulin Albumin/Globulin Ratio Urine Color Yellow Urine Appearance Clear Urine pH 5.0 Ur Specific [place] 1.023 Urine Protein Neg Urine Glucose (UA) 150 A Urine Ketones 5/tr A Urine Occult Blood Neg Urine Nitrate Neg Urine Bilirubin Neg Urine Urobilinogen Neg Ur Leukocyte Esterase 250 A Urine RBC 1 Urine WBC 7 H Ur Squamous Epith Cells 1 Ur Transition Epith Cell < 1 Urine Bacteria 0 Hyaline Casts 2 Urine Mucus Few Ur Culture Indicated? No 02/09/20 02/09/20 02/09/20 05:17 05:17 05:17 WBC 12.4 H RBC 3.58 L Hgb 10.9 L Hct 33.0 L POC Hct MCV 92.2 MCH 30.4 MCHC 33.0 RDW 12.1 Plt Count 158 MPV 10.9 H Gran % 87.2 H Lymph % (Auto) 6.6 L [place] % (Auto) 5.9 Eos % (Auto) 0.1 Baso % (Auto) 0.2 Gran # 10.82 H Lymph # (Auto) 0.82 L [place] # (Auto) 0.73 Eos # (Auto) 0.01 Baso # (Auto) 0.03 POC PT PT 13.9 POC INR INR 1.0 POC Sodium Sodium 136 POC Potassium Potassium 4.3 POC Chloride Chloride 103 Carbon Dioxide 19 L POC Total CO2 Anion Gap 14.0 POC BUN BUN 15 Creatinine 0.7 POC Creatinine GFR Calculation 80 Glucose 246 H POC Glucose Hemoglobin A1c TNP Estim Average Glucose TNP Calcium 8.0 L POC WB Ioniz Calcium Phosphorus Magnesium Total Bilirubin 0.4 AST 18 ALT 7 Alkaline Phosphatase 69 Troponin T NT-Pro-B Natriuret Pep Total Protein 5.5 L Albumin 3.1 L Globulin 2.4 Albumin/Globulin Ratio 1.3 Urine Color Urine Appearance Urine pH Ur Specific [place] Urine Protein Urine Glucose (UA) Urine Ketones Urine Occult Blood Urine Nitrate Urine Bilirubin Urine Urobilinogen Ur Leukocyte Esterase Urine RBC Urine WBC Ur Squamous Epith Cells Ur Transition Epith Cell Urine Bacteria Hyaline Casts Urine Mucus Ur Culture Indicated? 02/09/20 08:20 WBC RBC Hgb Hct POC Hct MCV MCH MCHC RDW Plt Count MPV Gran % Lymph % (Auto) [place] % (Auto) Eos % (Auto) Baso % (Auto) Gran # Lymph # (Auto) [place] # (Auto) Eos # (Auto) Baso # (Auto) POC PT PT POC INR INR POC Sodium Sodium POC Potassium Potassium POC Chloride Chloride Carbon Dioxide POC Total CO2 Anion Gap POC BUN BUN Creatinine POC Creatinine GFR Calculation Glucose POC Glucose Hemoglobin A1c 7.0 H Estim Average Glucose 154 Calcium POC WB Ioniz Calcium Phosphorus Magnesium Total Bilirubin AST ALT Alkaline Phosphatase Troponin T NT-Pro-B Natriuret Pep Total Protein Albumin Globulin Albumin/Globulin Ratio Urine Color Urine Appearance Urine pH Ur Specific [place] Urine Protein Urine Glucose (UA) Urine Ketones Urine Occult Blood Urine Nitrate Urine Bilirubin Urine Urobilinogen Ur Leukocyte Esterase Urine RBC Urine WBC Ur Squamous Epith Cells Ur Transition Epith Cell Urine Bacteria Hyaline Casts Urine Mucus Ur Culture Indicated? s/p L [place] hip arthroplasty-stable mobilize with PT tentative discharge to SNF 1-2 days
[2020-02-09] MEDS: MAGNESIUM SULFATE 2 GM/50 ML BAG IV SCH ×2 (12:43→19:04)
[2020-02-09] MEDS ORDERED: WARFARIN 3 MG TABLET PO ONE (14:00)
[2020-02-09 14:50] LABS: Hemoglobin A1C 7.2 % HGB (4.0-6.0)
[2020-02-09] MEDS: PRAZOSIN 1 MG CAPSULE PO PRN (20:50)
[2020-02-09] MEDS: SENNOSIDES 1 TABLET PO SCH (20:50)
[2020-02-10] MEDS: oxyCODONE/APAP 5/325MG TABLET PO PRN ×4 (00:03→19:38)
[2020-02-10] MEDS: 0.9 % SODIUM CHLORIDE 1,000 ML IV SCH ×4 (03:36→22:17)
[2020-02-10] MEDS: 0.9 % SODIUM CHLORIDE 10 ML SYRINGE IV SCH ×3 (04:00→22:37)
[2020-02-10 06:19] LABS: Basophils # (Auto) 0.04 K/mcL (0.00-0.30); Basophils % (Auto) 0.6 % (0.0-2.0); Eosinophils # (Auto) 0.31 K/mcL (0.00-0.70); Eosinophils % (Auto) 4.6 % (0.0-7.0); Granulocytes % (Auto) 68.4 % (38.0-78.0); Hematocrit 27.2 % (34.1-44.9); Hemoglobin 9.1 g/dL (11.2-15.7); Lymphocytes # (Auto) 1.04 K/mcL (1.50-4.80); Lymphocytes % (Auto) 15.5 % (15.5-49.0); Mean Cell Volume 92.5 fL (80.0-100.0); Mean Corpuscular HGB Conc 33.5 g/dL (31.0-36.0); Monocytes # (Auto) 0.73 K/mcL (0.10-0.90); Monocytes % (Auto) 10.9 % (1.0-12.0); Platelet Count 119 K/mcL (140-440); RBC 2.94 M/mcL (3.59-5.38); Red Cell Distribution Width 12.4 % (11.5-14.5); WBC 6.7 K/mcL (4.50-11.00)
[2020-02-10 06:28] LABS: ALT/SGPT 20 U/l (0-40); AST/SGOT 30 U/l (0-37); Albumin 2.7 gm/dL (3.2-5.2); Albumin/Globulin Ratio 1.2 (1.0-2.3); Alkaline Phosphatase 67 U/L (39-117); Bilirubin,Total 0.3 mg/dL (0.0-1.0); Blood Urea Nitrogen 15 mg/dl (8-23); Calcium 7.6 mg/dl (8.6-10.4); Carbon Dioxide 20 mmol/L (22-30); Globulin 2.3 gm/dL (2.2-3.7); Glomerular Filtration Rate 68; Glucose 180 mg/dL (70-105)
[2020-02-10 06:48] LABS: Chloride 104 mmol/L (96-108)
[2020-02-10 06:51] LABS: INR 1.1 (0.9-1.1)
[2020-02-10] MEDS: INSULIN LISPRO 1 UNIT/0.01 ML UNIT SQ SCH ×4 (07:44→21:07)
[2020-02-10] MEDS: LEVOTHYROXINE 50 MCG TABLET PO SCH (07:45)
[2020-02-10] MEDS: PANTOPRAZOLE 40 MG TABLET PO SCH (07:45)
[2020-02-10] MEDS: CLOPIDOGREL 75 MG TABLET PO SCH (09:38)
[2020-02-10] MEDS: DOCUSATE SODIUM 100 MG CAPSULE PO SCH ×2 (09:38→20:56)
[2020-02-10] MEDS: MONTELUKAST 10 MG TABLET PO SCH (09:38)
[2020-02-10] MEDS: CILOSTAZOL 100 MG TABLET PO SCH (09:38)
[2020-02-10] MEDS: GABAPENTIN 300 MG CAPSULE PO SCH ×3 (09:39→20:56)
[2020-02-10] MEDS: ATORVASTATIN 20 MG TABLET PO SCH (09:39)
[2020-02-10] MEDS: MEMANTINE 10 MG TABLET PO SCH (09:39)
[2020-02-10] MEDS: INSULIN GLARGINE, HUMAN 1 UNIT/0.01 ML SQ SCH (09:39)
[2020-02-10] MEDS: DULoxetine 30 MG CAPSULE PO SCH (09:39)
[2020-02-10] MEDS: DONEPEZIL 10 MG TABLET PO SCH (09:56)
--- NOTE | 2020-02-10 10:45 | Internal Med Progress Note ---
Medical - PN: Subj Patient information: Note initiated : 02/10/20 at 10:41 am Service Date, if different from initiated Date: [] Patient: Monika Mendez a 84 y/o F admitted on 02/08/20 for left hip pain. Chief Complaint: [] Interval history: Ms. Mendez is a 84 year old F with a past medical history of, COPD, high blood pressure, anemia, diabetes type 2, hypothyroidism, diabetes and depression who presents to the ER due to a fall and left hip pain. As per patient, she had a mechanical fall this morning at home. Immediately after the fall, she started to have left hip pain. Patient denies loss of consciousness and any injury to her head. In the ER, xray showed left hip fracture. Orth Dr. Moss was consulted, who suggested to admit pt and will do surgical intervention for her fracture. When I saw this patient, other than the symptoms mentioned above, she denied headache, dizziness, chest pain, shortness of breath, nausea, vomiting, abdominal pain, dysuria, change in vision, tingling or numbness of both legs. 02/08 Pt underwent open treatment of Left femoral neck fracture with prosthetic hemiarthroplasty by Dr. Moss on 02/08/20 Feels fine today. But she reports that she has pain from the surgical site. Otherwise she is fine. Vital signs are stable WBC 12.4, hemoglobin 10.9 Hemoglobin A1c 7.0 Mag 1.2, repleted, repeat in morning 02/09 Pt feels fine. Pain is better controlled. Denies dizziness, chest pain, shortness of breath, fever, or chills. Vital signs are stable WBC went down to 6.7 today from 12.4 yesterday Hemoglobin A1c 7.2 Mag 2.0 today Review of systems: Positive for left hip pain. All other systems were reviewed and are negative. - Constitutional Vitals: Vital Signs Temp Pulse Resp BP Pulse Ox 98.7 F 92 H 16 106/50 91 02/10/20 03:35 02/10/20 03:35 02/10/20 03:35 02/10/20 03:35 02/10/20 03:35 Period Temp Pulse Resp BP Sys/Ley Pulse Ox Last 24 Hr 98.3 F-98.8 F 60-98 14-16 106-136/39-58 91-96 Intake and Output 0509/20 05/10/20 05/10/20 21:59 05:59 13:59 Intake Total 1890 500 Output Total 600 475 Balance 1290 25 Weight 69.173 kg Intake & Output: Intake & Output 02/09/20 02/10/20 02/10/20 21:59 05:59 13:59 Intake Total 1890 500 Output Total 600 475 Balance 1290 25 Weight 69.173 kg Intake: IV 1050 Sodium Chloride 0.9% 1,000 ml @ 1000 75 mls/hr IV .[id number] [facility] Rx#: [id number] Oral 840 500 Output: Void Amount 600 475 Other: Meal Dinner Percent of Meal Consumed 100% Urine Appearance Clear Uretheral (Burton) Clear Urine Color Bright Yellow Dark Yellow - Additional findings Additional findings: General - No acute distress Eyes - PERRLA, EOM intact ENT no rhinorrhea, no noticeable or palpable swelling, no redness or rash around throat or on face Neck supple, no JVD, no thyromegaly Respiratory: Lungs -clear, no wheezing or crackles. Cardiovascular - RRR no m/r/g, GI - Normal bowel sounds, no distended, soft. Extremeties - left hip tenderness, No edema, cyanosis or clubbing. Dressing dry Hemo/lymphatic/immune no lymphadenopathy Neurological Alert and oriented x 3, expressive aphasia, no focal neurological deficits. Psychiatry flat affect Medical - PN: Obj Da - Labs CBC & Chem 7: 02/10/20 05:16 02/10/20 05:16 Labs: Abnormal Lab Results 02/10/20 02/10/20 02/10/20 05:16 05:16 05:16 WBC RBC 2.94 L Hgb 9.1 L Hct 27.2 L Plt Count 119 L MPV 11.0 H Gran % Lymph % (Auto) Gran # Lymph # (Auto) 1.04 L PT 15.0 H Carbon Dioxide 20 L POC Total CO2 Glucose 180 H POC Glucose Hemoglobin A1c Calcium 7.6 L Magnesium Total Protein 5.0 L Albumin 2.7 L Urine Glucose (UA) Urine Ketones Ur Leukocyte Esterase Urine WBC 02/09/20 02/09/20 02/09/20 08:20 08:20 05:17 WBC RBC Hgb Hct Plt Count MPV Gran % Lymph % (Auto) Gran # Lymph # (Auto) PT Carbon Dioxide 19 L POC Total CO2 Glucose 246 H POC Glucose Hemoglobin A1c 7.2 H 7.0 H Calcium 8.0 L Magnesium Total Protein 5.5 L Albumin 3.1 L Urine Glucose (UA) Urine Ketones Ur Leukocyte Esterase Urine WBC 02/09/20 02/08/20 02/08/20 05:17 12:16 10:39 WBC 12.4 H RBC 3.58 L Hgb 10.9 L Hct 33.0 L Plt Count MPV 10.9 H Gran % 87.2 H Lymph % (Auto) 6.6 L Gran # 10.82 H Lymph # (Auto) 0.82 L PT Carbon Dioxide POC Total CO2 Glucose POC Glucose Hemoglobin A1c Calcium Magnesium 1.2 L Total Protein Albumin Urine Glucose (UA) 150 A Urine Ketones 5/tr A Ur Leukocyte Esterase 250 A Urine WBC 7 H 02/08/20 02/08/20 10:39 10:39 WBC RBC Hgb Hct Plt Count MPV 11.2 H Gran % Lymph % (Auto) Gran # Lymph # (Auto) 1.18 L PT Carbon Dioxide POC Total CO2 21 L Glucose POC Glucose 218 H Hemoglobin A1c Calcium Magnesium Total Protein Albumin Urine Glucose (UA) Urine Ketones Ur Leukocyte Esterase Urine WBC Meds: Medications Atorvastatin Calcium (Lipitor) 20 mg PO QDAY [facility] Last Admin: 02/10/20 09:39 Dose: 20 mg Documented by: Bisacodyl (Dulcolax) 10 mg UT Q2-3DAYS PRN PRN Reason: Constipation Cilostazol (Pletal) 100 mg PO QDAY [facility] Last Admin: 02/10/20 09:38 Dose: 100 mg Documented by: Clopidogrel Bisulfate (Plavix) 75 mg PO DAILY [facility] Last Admin: 02/10/20 09:38 Dose: 75 mg Documented by: Dextrose (Dextrose 50%) 0 ml IV UD PRN PRN Reason: Hypoglycemia Diagnostic Test (Pha) (Accu-Chek) 1 each FS ACHS [facility] Last Admin: 02/10/20 07:43 Dose: 1 each Documented by: Docusate Sodium (Colace) 100 mg PO BID [facility] Last Admin: 02/10/20 09:38 Dose: 100 mg Documented by: Donepezil HCl (Aricept) 5 mg PO QDAY [facility] Last Admin: 02/10/20 09:56 Dose: 5 mg Documented by: Duloxetine HCl (Cymbalta) 60 mg PO QDAY [facility] Last Admin: 02/10/20 09:39 Dose: 60 mg Documented by: Gabapentin (Neurontin) 300 mg PO TID [facility] Last Admin: 02/10/20 09:39 Dose: 300 mg Documented by: Glucose (Insta-Glucose) 15 gm PO PRN PRN PRN Reason: Hypoglycemia Sodium Chloride (Sodium Chloride 0.9%) 1,000 mls @ 75 mls/hr IV .[id number] [facility] Last Admin: 02/10/20 05:01 Dose: Not Given Documented by: Insulin Glargine (Lantus) 5 unit SQ DAILY [facility] Last Admin: 02/10/20 09:39 Dose: 5 units Documented by: Insulin Human Lispro (Humalog) 0 unit SQ [facility]; Protocol Last Admin: 02/10/20 07:44 Dose: 3 unit Documented by: Levothyroxine Sodium (Synthroid) 50 mcg PO [facility] Last Admin: 02/10/20 07:45 Dose: 50 mcg Documented by: Magnesium Hydroxide (Milk Of Magnesia) 30 ml PO BIDP PRN PRN Reason: Constipation Memantine (Namenda) 10 mg PO [facility] Last Admin: 02/10/20 09:39 Dose: 10 mg Documented by: Mirtazapine (Remeron) 15 mg PO QHS [facility] Montelukast Sodium (Singular) 10 mg PO QDAY [facility] Last Admin: 02/10/20 09:38 Dose: 10 mg Documented by: Morphine Sulfate (Morphine) 0 mg IV Q1HP PRN; Protocol PRN Reason: Per Pain Protocol Last Admin: 02/09/20 10:42 Dose: 4 mg Documented by: Oxycodone/Acetaminophen (Percocet 5-325 Mg) 0 tab PO Q4HP PRN; Protocol PRN Reason: Per Pain Protocol Last Admin: 02/10/20 09:57 Dose: 1 tab Documented by: Pantoprazole Sodium (Protonix) 40 mg PO [facility] Last Admin: 02/10/20 07:45 Dose: 40 mg Documented by: Polyethylene Glycol (Miralax) 17 gm PO DAILYP PRN PRN Reason: Constipation Last Admin: 02/10/20 09:55 Dose: 17 gm Documented by: Prazosin HCl (Minipress) 4 mg PO HSP PRN PRN Reason: Nightmares Last Admin: 02/09/20 20:50 Dose: 4 mg Documented by: Prochlorperazine (Compazine) 5 mg IV Q6HP PRN PRN Reason: Nausea And Vomiting Last Admin: 02/08/20 18:38 Dose: 5 mg Documented by: Senender (Senokot) 2 tab PO HS [facility] Last Admin: 02/09/20 20:50 Dose: 2 tab Documented by: Sodium Biphosphate/Sodium Phosphate (Fleets Adult) 1 dose UT Q3-4DAYS PRN PRN Reason: Constipation Sodium Chloride (Saline Flush) 10 ml IV Q8 [facility] Last Admin: 02/10/20 04:00 Dose: Not Given Documented by: Throat Lozenges (Cepacol) 1 lozenge PO PRN PRN PRN Reason: Sore Throat Medical - PN: A/P - Time Spent With Patient Total time spent is greater than 50% in coordination of care (as documented) at patient's floor/unit and/or counseling patient: - Narrative A/P Narrative: Assessment: 1. Acute fracture in the left femoral neck 2. S/p stroke 3. COPD 4. HTN 5. Anemia of chronic disease 6. DM type 2 7. Hx of orthostatic hypotension 8. Hypothyroidism 9. Anxiety and depression 10. Meachanical fall at home, 11. Hypomagnesemia Plan: 1. S/p open treatment of Left femoral neck fracture with prosthetic hemiarthroplasty by Dr. Moss on 02/08/20 Postop management including pain control and DVT prophylaxis by Ortho team resumed diet Mobilize with PT 2. 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 Home medications include plavix and lipitor. resumed Plavix. Continue lipitor. 3. COPD stable. Continue montelukast and inhalers 4. Home medications do not include blood pressure medication. Blood pressure is not high. Monitor blood pressure 5. hemoglobin 9.1 today. repeat CBC in am 6. Hba1c 7.2 Diabetic diet. Metformin is on hold Lantus 5units. Insulin sliding scales 6. Continue home medications for anxiety and depression 7. PT/OT 8. Mag 2.0 today 9. DVT prophylaxis: Lovenox 10. Code status: DNR/DNI Placement - SNF Medical - PN: Qual - Stroke Symptom Onset Unknown: No - VTE Deep Vein Thrombosis/Pulmonary Embolism Present on Admission: No
[2020-02-10] MEDS: ENOXAPARIN 40 MG/0.4 ML SYRINGE SQ SCH (11:52)
--- NOTE | 2020-02-10 12:58 | Orthopedic Progress Note ---
Orthopedics - Auxillary Note - Subjective Patient Information: Note initiated : 02/10/20 at 12:57 pm Service Date, if different from initiated Date: [] Patient: Monika Mendez 84 y/o F admitted on 02/08/20 for left hip pain. Chief Complaint: L hip pain. bandages c/d/i nvi-distal Vital Signs Temp Pulse Resp BP BP Pulse Ox 02/10/20 08:00 98.2 F 84 20 106/58 96 02/10/20 03:35 98.7 F 92 H 16 106/50 91 02/09/20 23:43 98.7 F 93 H 16 122/55 93 02/09/20 19:00 98.3 F 98 H 16 107/54 91 02/09/20 16:00 98.3 F 14 136/39 94 Intake and Output 02/09/20 02/10/20 02/10/20 21:59 05:59 13:59 Intake Total 1890 500 Output Total 600 475 Balance 1290 25 Intake: IV 1050 Sodium Chloride 0.9% 1,000 ml @ 1000 75 mls/hr IV .[id number] [facility] Rx#: [id number] Oral 840 500 Output: Void Amount 600 475 Other: Meal Dinner Percent of Meal Consumed 100% Urine Appearance Clear Uretheral (Burton) Clear Urine Color Bright Yellow Dark Yellow Weight 152 lb 8 oz Laboratory Results - last 24 hr 02/09/20 02/10/20 02/10/20 08:20 05:16 05:16 WBC 6.7 RBC 2.94 L Hgb 9.1 L Hct 27.2 L MCV 92.5 MCH 31.0 MCHC 33.5 RDW 12.4 Plt Count 119 L MPV 11.0 H Gran % 68.4 Lymph % (Auto) 15.5 [place] % (Auto) 10.9 Eos % (Auto) 4.6 Baso % (Auto) 0.6 Gran # 4.58 Lymph # (Auto) 1.04 L [place] # (Auto) 0.73 Eos # (Auto) 0.31 Baso # (Auto) 0.04 PT INR Sodium 136 Potassium 4.2 Chloride 104 Carbon Dioxide 20 L Anion Gap 12.0 BUN 15 Creatinine 0.8 GFR Calculation 68 Glucose 180 H Hemoglobin A1c 7.2 H Estim Average Glucose 160 Calcium 7.6 L Magnesium 2.0 Total Bilirubin 0.3 AST 30 ALT 20 Alkaline Phosphatase 67 Total Protein 5.0 L Albumin 2.7 L Globulin 2.3 Albumin/Globulin Ratio 1.2 02/10/20 05:16 WBC RBC Hgb Hct MCV MCH MCHC RDW Plt Count MPV Gran % Lymph % (Auto) [place] % (Auto) Eos % (Auto) Baso % (Auto) Gran # Lymph # (Auto) [place] # (Auto) Eos # (Auto) Baso # (Auto) PT 15.0 H INR 1.1 Sodium Potassium Chloride Carbon Dioxide Anion Gap BUN Creatinine GFR Calculation Glucose Hemoglobin A1c Estim Average Glucose Calcium Magnesium Total Bilirubin AST ALT Alkaline Phosphatase Total Protein Albumin Globulin Albumin/Globulin Ratio s/p L duarte hip arthroplasty-stable mobilize with PT discharge to SNF tomorrow f/u at [place] in 10-14 days.
[2020-02-10] MEDS: SENNOSIDES 1 TABLET PO SCH (20:56)
[2020-02-10] MEDS: PRAZOSIN 1 MG CAPSULE PO PRN (20:57)
[2020-02-10] MEDS ORDERED: MIRTAZAPINE 15 MG TABLET PO SCH (21:00)
[2020-02-11] MEDS: 0.9 % SODIUM CHLORIDE 10 ML SYRINGE IV SCH (04:14)
[2020-02-11 06:39] LABS: Basophils # (Auto) 0.04 K/mcL (0.00-0.30); Basophils % (Auto) 0.5 % (0.0-2.0); Eosinophils # (Auto) 0.28 K/mcL (0.00-0.70); Eosinophils % (Auto) 3.6 % (0.0-7.0); Granulocytes % (Auto) 80.6 % (38.0-78.0); Hematocrit 26.7 % (34.1-44.9); Hemoglobin 8.9 g/dL (11.2-15.7); Lymphocytes # (Auto) 0.57 K/mcL (1.50-4.80); Lymphocytes % (Auto) 7.2 % (15.5-49.0); Mean Cell Volume 92.7 fL (80.0-100.0); Mean Corpuscular HGB Conc 33.3 g/dL (31.0-36.0); Mean Platelet Volume 10.8 fL (7.4-10.4); Monocytes # (Auto) 0.64 K/mcL (0.10-0.90); Monocytes % (Auto) 8.1 % (1.0-12.0); Platelet Count 117 K/mcL (140-440); RBC 2.88 M/mcL (3.59-5.38); Red Cell Distribution Width 12.3 % (11.5-14.5); WBC 7.9 K/mcL (4.50-11.00)
[2020-02-11 06:45] LABS: ALT/SGPT 16 U/l (0-40); AST/SGOT 18 U/l (0-37); Albumin 2.5 gm/dL (3.2-5.2); Alkaline Phosphatase 70 U/L (39-117); Bilirubin,Total 0.6 mg/dL (0.0-1.0); Blood Urea Nitrogen 12 mg/dl (8-23); Calcium 7.8 mg/dl (8.6-10.4); Carbon Dioxide 18 mmol/L (22-30); Chloride 103 mmol/L (96-108); Globulin 2.5 gm/dL (2.2-3.7); Glomerular Filtration Rate 80; Glucose 163 mg/dL (70-105)
[2020-02-11 06:46] LABS: INR 1.2 (0.9-1.1); Prothrombin Time 15.7 sec (11.9-14.5)
[2020-02-11] MEDS: 0.9 % SODIUM CHLORIDE 1,000 ML IV SCH ×2 (06:56→10:38)
[2020-02-11] MEDS: oxyCODONE/APAP 5/325MG TABLET PO PRN ×2 (07:23→09:45)
[2020-02-11] MEDS: INSULIN LISPRO 1 UNIT/0.01 ML UNIT SQ SCH ×2 (07:23→12:24)
[2020-02-11] MEDS: LEVOTHYROXINE 50 MCG TABLET PO SCH (07:23)
[2020-02-11] MEDS: PANTOPRAZOLE 40 MG TABLET PO SCH (07:23)
--- NOTE | 2020-02-11 08:46 | Operative Note ---
DATE OF OPERATION: 02/08/2020 PREOPERATIVE DIAGNOSIS: Left displaced femoral neck fracture. POSTOPERATIVE DIAGNOSIS: Left displaced femoral neck fracture plus a greater trochanteric fracture. PROCEDURE PERFORMED: Open treatment of the left femoral neck fracture with prosthetic hemiarthroplasty placing a DePuy Valentines Basic cemented size 7 femoral stem, a +10 neck with a 46 mm unipolar head. SURGEON: Milton Moss M.D. INSECTICIDE SPRAYER: Edy David PA-C. The PA's assistance was required for the safe and efficient completion of the entire case. This provider's expertise and technical skill were required throughout the case. The PA assisted with preoperative coordination, intraoperative retraction, wound closure, dressing and splint application, as well as postoperative documentation and care coordination. ANESTHESIA: General. DRAINS: None. SPECIMENS: Femoral head which was discarded. BLOOD LOSS: 200 mL. COMPLICATIONS: None. POSTOPERATIVE CONDITION: Stable. INDICATIONS FOR SURGERY: This is an 84-year-old female who fell earlier today, had pain and inability to bear weight. She was taken to the ER and x-rays taken showed a displaced femoral neck fracture. FINDINGS AT SURGERY: Findings at surgery showed a displaced base of femoral neck fracture with a fracture through the greater trochanter as well. Post-procedure showed satisfactory stability and range of motion without what appeared to be excessive limb lengthening. PROCEDURE IN DETAIL: The patient had been seen preoperatively. Informed consent had been obtained after discussion of risks and benefits of surgery. Risks including, but not limited to, bleeding, possibly requiring transfusion; infection, possibly requiring implant removal and prolonged IV antibiotics; injury to nerves, blood vessels, other surrounding structures; anesthetic risks; incomplete or no resolution of symptoms; dislocation; fracture; leg length discrepancy; DVT and pulmonary embolus risks; and the possibility of needing further revision surgery. She understood and wished to proceed. Correct operative site was marked and patient was taken to the operating room. General anesthesia was induced. The patient was then carefully positioned in the right lateral decubitus position and pressure points carefully padded. The left hip and lower extremity were then carefully prepped and draped in normal sterile fashion. A timeout was performed verifying patient name, operative site, and plan. Ioban was used to cover all skin surfaces. A standard posterior approach incision was made with a scalpel through skin and subcutaneous tissue. I continued down with Bovie cautery down onto the IT band. This was incised in line with the skin incision and then a Charnley retractor placed. The short external rotators were exposed, sweeping the fat pad off of the short external rotators, and then the capsule was incised along with the femoral neck up to the base of the neck and then T'd down towards the lesser trochanter and up. A fracture hematoma was evacuated. At this point, the fracture was noted to involve the base of the neck in addition to a mobile greater trochanteric fragment. We went ahead and placed a corkscrew in the femoral neck and removed the femoral head. This sized to between a 46 and 47. We exposed the acetabulum, removed any bone fragments, and then trialed the 46 which fit well. We then exposed the proximal femur. This was quite fragmented down to the lesser trochanter. We used the awl to identify trajectory and then a lateralizer and then sequentially reamed up to a 6. We then sequentially broached up to a 7 before we got good fit. We trialed with the 0 neck. This easily reduced and the leg appeared short. We removed the trial. We opened a 7 stem. We irrigated Irrisept down the femoral canal. After a minute we pulse lavaged with saline. We then placed a cement restrictor. Cement had been mixed. We then filled the canal with cement. We then compressed and then the stem was placed with approximately 15 degrees of anteversion. We held this absolutely still until cement had fully hardened. We then went ahead and trialed with a +10 after cement had fully hardened. The hip reduced with much better tension and was stable throughout range of motion. Knees seemed only slightly lengthened, and we checked stability with flexion to 90 and internal rotation, and it was very stable. The trochanter fragment seemed reasonably stable after cementation, so we went ahead and opened a +10 neck with a 46 unipolar head. These were assembled. The stem was carefully cleaned and dried and then the head ball was impacted. The hip was reduced. We double-checked our stability again and it was good. We then went ahead and used a #5 FiberWire [id number] to close the posterior capsule. We then irrigated Irrisept again, after a minute pulse lavaged with saline. A #1 Vicryl was used to close the IT band. After a minute, we then irrigated with Irrisept again. After a minute we then irrigated with saline, and fat was tacked to fascia with Vicryl and Monocryl was used to close subcutaneous and usha for skin. Xeroform and sterile dressing were applied. The leg was placed in an abductor wedge. Patient was then turned supine, awakened, extubated, and transferred to recovery in stable condition. BJB:nile Job ID: [id number] Doc ID: [id number] Milton Moss MD
[2020-02-11] MEDS: ENOXAPARIN 40 MG/0.4 ML SYRINGE SQ SCH (09:44)
[2020-02-11] MEDS: DULoxetine 30 MG CAPSULE PO SCH (09:44)
[2020-02-11] MEDS: MEMANTINE 10 MG TABLET PO SCH (09:45)
[2020-02-11] MEDS: GABAPENTIN 300 MG CAPSULE PO SCH (09:45)
[2020-02-11] MEDS: ATORVASTATIN 20 MG TABLET PO SCH (09:45)
[2020-02-11] MEDS: MONTELUKAST 10 MG TABLET PO SCH (09:45)
[2020-02-11] MEDS: CLOPIDOGREL 75 MG TABLET PO SCH (09:45)
[2020-02-11] MEDS: CILOSTAZOL 100 MG TABLET PO SCH (09:46)
[2020-02-11] MEDS: DOCUSATE SODIUM 100 MG CAPSULE PO SCH (09:46)
--- NOTE | 2020-02-11 10:18 | Discharge Summary ---
Medical - DS: Prov Patient information: Note initiated : 02/11/20 at 10:15 am Service Date, if different from initiated Date: [] Patient: Monika Mendez 84 y/o F admitted on 02/08/20 for left hip pain. Chief Complaint: [] Date of admission: 02/08/20 13:36 Discharge date: 02/11/20 Primary care physician: Vania Chatterjee Consults: 02/09/20 08:49 Consult to Physician [CONS] Routine Comment: Consulting Provider: Mauricio Figueroa Reason For Exam: Physician to Consult Medical - DS: Meds - Discharge Medications Prescriptions: oxyCODONE HCL/ACETAMINOPHEN [Endocet 5-325 Tablet] 1 - 2 tab PO Q6H PRN #50 tab PRN Reason: Pain Prescription Printed Active and Home Medications: Home Medications Accu-Chek 1 each FS AC 03/17/16 [History Confirmed 02/08/20 Last Taken Unknown] furosemide 20 mg tablet See Rx Instructions .ROUTE .COMPLEX #20 tab 07/24/19 [Rx Confirmed 02/08/20 Last Taken Unknown] insulin glargine 100 unit/mL (3 mL) subcutaneous pen See Rx Instructions SUB-Q BID ml 08/21/19 [History Confirmed 02/10/20 Last Taken Unknown] cilostazol 100 mg tablet 100 mg PO QDAY #30 tab 08/22/19 [Rx Confirmed 02/08/20 Last Taken Unknown] pen needle, diabetic 31 gauge x /" See Rx Instructions .ROUTE .MEDSUPPLY #100 each 08/22/19 [Rx Confirmed 02/08/20 Last Taken Unknown] blood-glucose meter See Rx Instructions .ROUTE .MEDSUPPLY #1 each 09/13/19 [Rx Confirmed 02/08/20 Last Taken Unknown] blood sugar diagnostic See Rx Instructions .ROUTE .MEDSUPPLY #100 each 09/17/19 [Rx Confirmed 02/08/20 Last Taken Unknown] gabapentin 300 mg capsule 300 mg PO TID #150 cap 10/16/19 [Rx Confirmed 02/08/20 Last Taken Unknown] hydrocodone 7.5 mg-acetaminophen 325 mg tablet 1 tab PO Q12H #60 tab 10/23/19 [Rx Confirmed 02/09/20 Last Taken Unknown] memantine 10 mg tablet 10 mg PO QAM #30 tab 11/13/19 [Rx Confirmed 02/08/20 Last Taken Unknown] clopidogrel 75 mg tablet 75 mg PO QDAY #30 tab 12/11/19 [Rx Confirmed 02/08/20 Last Taken Unknown] levothyroxine 50 mcg tablet 50 mcg PO QAM #30 tab 12/11/19 [Rx Confirmed 02/08/20 Last Taken Unknown] montelukast 10 mg tablet 10 mg PO QDAY #30 tab 12/11/19 [Rx Confirmed 02/08/20 Last Taken Unknown] pantoprazole 40 mg tablet,delayed release 40 mg PO QDAY #90 tab 01/09/20 [Rx Confirmed 02/08/20 Last Taken Unknown] atorvastatin 20 mg tablet 20 mg PO QDAY #30 tab 01/28/20 [Rx Confirmed 02/08/20 Last Taken Unknown] duloxetine 60 mg capsule,delayed release 60 mg PO QDAY #30 cap 01/28/20 [Rx Confirmed 02/08/20 Last Taken Unknown] metformin 500 mg tablet 500 mg PO BID #60 tab 01/28/20 [Rx Confirmed 02/08/20 Last Taken Unknown] donepezil 5 mg tablet 5 mg PO QDAY #90 tab 02/05/20 [Rx Confirmed 02/08/20 Last Taken Unknown] Prazosin HCl [Minipress] 4 mg PO HS PRN 02/08/20 [History Confirmed 02/08/20 Last Taken Unknown] semaglutide See Rx Instructions .ROUTE .COMPLEX #2 unknown measurement unit code: ml 02/08/20 [Rx Confirmed 02/10/20 Last Taken Unknown] Liothyronine Sodium 1 tab PO QHS 02/09/20 [History Confirmed 02/09/20 Last Taken Unknown] Mirtazapine [Remeron] 15 mg PO QHS 02/09/20 [History Confirmed 02/09/20 Last Taken Unknown] traZODone HCL [Trazodone HCl] 100 mg PO QHS 02/09/20 [History Confirmed 02/09/20 Last Taken Unknown] oxyCODONE HCL/ACETAMINOPHEN [Endocet 5-325 Tablet] 1 - 2 tab PO Q6H PRN #50 tab 02/10/20 [Rx Last Taken Unknown] Medical - DS: Hosp Hospital Course: Discharge diagnosis 1. Acute fracture in the left femoral neck-status post surgery by orthopedics. Will follow up with [facility] in 14 days. Continue postoperative care per orthopedics/postoperative rehab per PT OT at SNF 2. S/p stroke continue Plavix/cilostazol/Lipitor 3. COPD continue bronchodilators 4. HTN-normotensive 5. Anemia of chronic disease follow PCP 6. DM type 2 stable on CCB/metformin/basal insulin 7. Hx of orthostatic hypotension-resolved 8. Hypothyroidism-continue home meds 9. Anxiety and depression-stable Brief hospital course Ms. Mendez is a 84 year old F with a past medical history of, COPD, high blood pressure, anemia, diabetes type 2, hypothyroidism, diabetes and depression who presents to the ER due to a fall and left hip pain. As per patient, she had a mechanical fall this morning at home. Immediately after the fall, she started to have left hip pain. Patient denies loss of consciousness and any injury to her head. In the ER, xray showed left hip fracture. Orth Dr. Moss was consulted, who suggested to admit pt and will do surgical intervention for her fracture. When I saw this patient, other than the symptoms mentioned above, she denied headache, dizziness, chest pain, shortness of breath, nausea, vomiting, abdominal pain, dysuria, change in vision, tingling or numbness of both legs. 02/08 Pt underwent open treatment of Left femoral neck fracture with prosthetic hemiarthroplasty by Dr. Moss on 02/08/20 Feels fine today. But she reports that she has pain from the surgical site. Otherwise she is fine. Vital signs are stable WBC 12.4, hemoglobin 10.9 Hemoglobin A1c 7.0 Mag 1.2, repleted, repeat in morning 02/09 Pt feels fine. Pain is better controlled. Denies dizziness, chest pain, shortness of breath, fever, or chills. Vital signs are stable WBC went down to 6.7 today from 12.4 yesterday Hemoglobin A1c 7.2 Mag 2.0 today 02/10-patient discharging to SNF. Continue postoperative care/rehab as per ort hopedics/PT OT. Continue follow-up with [facility] in 14 days. Follow-up PCP in 5 to 7 days. Discharge instructions as below Discharge diagnosis: . - Time Spent with Patient Total time spent providing and/or coordinating discharge services: Greater than 30 minutes Medical - DS: Exam - Constitutional Vitals: Vital Signs Temp Pulse Resp BP BP Pulse Ox 02/11/20 08:31 99.7 F H 05/11/20 07:45 100.7 F H 112 H 20 122/56 92 02/11/20 03:30 98.7 F 110 H 22 132/66 92 02/10/20 23:44 98.9 F 103 H 22 109/56 94 02/10/20 19:42 98.7 F 102 H 22 107/46 96 02/10/20 16:00 98.7 F 100 H 20 118/52 92 02/10/20 12:00 97.8 F 86 18 104/46 92 Intake and Output 02/10/20 02/11/20 02/11/20 21:59 05:59 13:59 Intake Total 4036 218 6738 Output Total 550 550 350 Balance 1240 35 890 Intake: IV 1000 1000 Sodium Chloride 0.9% 1,000 ml @ 1000 1000 75 mls/hr IV .[id number] [facility] Rx#: [id number] Oral 790 585 240 Output: Void Amount 550 550 350 Other: Meal Dinner Breakfast Percent of Meal Consumed 10 25% Feeding Ability Independent Assist with Tray Set Up Urine Appearance Cloudy Urine Color Bright Yellow Straw Urine Odor Normal Normal Weight 160 lb 8 oz Medical - DS: Data Labs on day of discharge: Labs from last 24 hours 02/11/20 02/11/20 02/11/20 05:23 05:23 05:23 WBC 7.9 RBC 2.88 L Hgb 8.9 L Hct 26.7 L MCV 92.7 MCH 30.9 MCHC 33.3 RDW 12.3 Plt Count 117 L MPV 10.8 H Gran % 80.6 H Lymph % (Auto) 7.2 L [place] % (Auto) 8.1 Eos % (Auto) 3.6 Baso % (Auto) 0.5 Gran # 6.35 Lymph # (Auto) 0.57 L [place] # (Auto) 0.64 Eos # (Auto) 0.28 Baso # (Auto) 0.04 PT 15.7 H INR 1.2 H Sodium 134 Potassium 4.0 Chloride 103 Carbon Dioxide 18 L Anion Gap 13.0 BUN 12 Creatinine 0.7 GFR Calculation 80 Glucose 163 H Calcium 7.8 L Total Bilirubin 0.6 AST 18 ALT 16 Alkaline Phosphatase 70 Total Protein 5.0 L Albumin 2.5 L Globulin 2.5 Albumin/Globulin Ratio 1.0 Medical - DS: A/P - Patient/Caregiver Discharge Instructions Activity: as per physical therapy, increase activity as tolerated Diet: Consistent Carbohydrate Additional Instructions: Follow-up PCP in 5 days F/u orthopedics as scheduled by orthopedics along with post op care. DVT prophylaxis on dual antiplatelet Plavix/cilostazol. Will be a high risk bleed if an additional anticoagulant is used. Continue early mobilization I recommend SNF physician to check, CBC BMP UA as a posthospital follow-up in 1 week. Continue aggressive bowel regimen to prevent constipation Continue fall precautions/daily PT OT High protein calorie supplements All meals on chair sitting upright at 90 degrees to prevent aspiration Return to ER if worsening fever chills shortness of breath, diarrhea, bleeding Refrain from smoking and alcohol Continue diet and activity as advised Discussed importance of medication adherence Please review medication list with patient prior to discharge Please schedule follow-up with PCP/Providers prior to discharge and provide printouts Prescriptions: oxyCODONE HCL/ACETAMINOPHEN [Endocet 5-325 Tablet] 1 - 2 tab PO Q6H PRN #50 tab PRN Reason: Pain Prescription Printed Other Amb Orders: Physical Therapy at Discharge - General Location: None Selected Walker Location: None Selected - Follow up Plan Follow up with: Vania Chatterjee [Primary Care Provider] - Disposition: Xfer SNF Prognosis: Fair Rehab Potential: Fair I certify that the patient requires SNF services: Yes Overall status at discharge: patient is progressing back to baseline Medical - DS: Qual - VTE Deep Vein Thrombosis/Pulmonary Embolism Present on Admission: No
[2020-02-11] MEDS: INSULIN GLARGINE, HUMAN 1 UNIT/0.01 ML SQ SCH (10:22)
[2020-02-11] MEDS: DONEPEZIL 10 MG TABLET PO SCH (10:23)
== END 2020-02-11 13:11 | DRG 470 ==
LOC: ED 10:10 → MEDSUR 13:36
PROVIDERS: ADMIT Internal Medicine; ATTEND Internal Medicine